=== PATIENT | female | born 1965 | race Caucasian/White ===

== ENCOUNTER 2023-10-08 14:21 | Outpatient (REF) | payer OTHER, SELFPAY | END 2023-10-08 14:22 | disposition home or self-care (01) | LOC: HO.LAB 14:21 | PROVIDERS: PCP Family Medicine; Visit Provider Psychiatry & Neurology Neurology | DX: Z13.89 Encounter for screening for other disorder (principal) ==

== ENCOUNTER 2023-10-23 08:41 | Outpatient (REF) | payer OTHER, SELFPAY ==
[2023-10-23 11:17] LABS: Alanine Aminotransferase 43 U/L (0-31); Albumin Level 4.5 g/dL (3.5-5.0); Alkaline Phosphatase 70 U/L (39-117); Anion Gap 12 (12-20); Aspartate Amino Transferase 27 U/L (5-31); Bilirubin Direct 0.1 mg/dL (0.0-0.5); Bilirubin Total 0.4 mg/dL (0.0-1.0); Blood Urea Nitrogen 16 mg/dL (9-16); Calcium 9.7 mg/dL (8.4-10.2); Carbon Dioxide 27 mmol/L (22-29); Chloride 110 mmol/L (96-108); Estimated Glomerular Filt Rate 58; Glucose Random 105 mg/dL (60-115); Potassium 4.4 mmol/L (3.3-5.1); Sodium 145 mmol/L (135-145); Total Protein 7.6 g/dL (6.5-8.0)
[2023-10-23 11:19] LABS: Syphilis Screen Nonreactive (Nonreactive)
[2023-10-28 14:28] LABS: Anti Nuclear Antibody Screen POSITIVE (NEGATIVE)
[2023-10-30 14:43] LABS: DNAds, Crithidia Antibody Negative (Negative)
== END 2023-10-23 08:42 | disposition home or self-care (01) ==
LOC: HO.LAB 08:41
PROVIDERS: Visit Provider Psychiatry & Neurology Neurology
DX: G93.40 Encephalopathy, unspecified (principal)
CPT/HCPCS: 36415; 80048; 80076; 86038; 86039; 86255; 86780

== ENCOUNTER 2023-10-30 09:21 | Outpatient (REF) | payer OTHER, SELFPAY ==
--- NOTE | ~2023-10-30 | MR_ITS ---
EXAMINATION: MR BRAIN WITHOUT AND WITH CONTRAST CLINICAL INFORMATION: Encephalopathy. COMPARISON: None available. TECHNIQUE: MRI of the brain was obtained using routine sequences without and following the administration of 8.5 mL of Gadavist intravenous contrast. FINDINGS: No focal restricted diffusion is demonstrated to suggest acute or subacute cerebral ischemia. No evidence of acute or chronic hemorrhagic products on heme-sensitive imaging. Few nonspecific scattered foci of periventricular and deep white matter T2 FLAIR hyperintensities. The ventricles are normal in morphology and size. No abnormal mass effect. No midline shift. Normal appearance of the pituitary gland. Normal positioning of the cerebellar tonsils. Normal arterial and venous vascular flow voids are present. No abnormal contrast enhancement. Normal, homogeneous marrow signal. Mild mucosal thickening of the paranasal sinuses. Moderate leftward nasal septal deviation. No signal abnormalities within the mastoids. MR/MR head/brain wo/w con IMPRESSION: 1. No acute intracranial abnormalities. No abnormal intracranial enhancement. 2. Mild nonspecific white matter changes.
[2023-10-30] MEDS: gadobutroL 10 ML VIAL IVPUSH (10:30)
== END 2023-10-30 09:22 | disposition home or self-care (01) ==
LOC: HO.MRI 09:21
PROVIDERS: Visit Provider Psychiatry & Neurology Neurology
DX: G93.40 Encephalopathy, unspecified (principal)
CPT/HCPCS: 70553; A9585

== ENCOUNTER 2025-01-25 12:04 | Outpatient (AMB) | payer OTHER, SELFPAY ==
--- NOTE | 2025-01-25 12:14 | MHC.OFFVIS ---
Intake Visit Reasons: 6 Months , Migranes Allergies amoxicillin Allergy (Unknown, Verified 01/20/25 09:38) Unknown erythromycin base Allergy (Unknown, Verified 01/20/25 09:38) Unknown HPI Comments Details: 59 yo RH woman with diagnoses of complex PTSD, major very treatment resistant depression (s/p trial of multiple meds, TMS, ECT, EMDS), bipolar disorder, and long Covid was was treated for migraine and REM sleep disorder. She is presenting with depression and insomnia. She reports a longstanding history of major depressive disorder that is resistant to pharmacological treatment. Despite attempts with numerous medications, she remains symptomatic, frequently expressing feelings of being unwanted and unloved, with relationships adding to emotional distress. Her resistance to treatments is further compounded by complex PTSD and related chronic insomnia. She notes significant sleep disturbances, suspecting only a few hours of sleep per night with frequent awakenings and inability to achieve deep REM sleep. The nightmares associated with PTSD have partially responded to prazosin. A history of non-responsive ECT and adverse reactions to TMS, including severe migraines, highlight the complexity of her treatment-resistant depression. Additionally, she struggles with generalized anxiety disorder, affecting her daily functioning and emotional stability. Past therapeutic attempts such as EMDR did not help improve her condition. [facility] Medical History (Updated 01/25/25 @ 12:16 by Qi Juares MD) Migraine without aura REM sleep behavior disorder Encephalopathy PTSD (post-traumatic stress disorder) Review of Systems Const Details: - General: Reports chronic fatigue and tiredness. - Psychiatric: Reports feeling extremely depressed, having persistent feelings of being unwanted and unloved, insomnia, nightmares, increased stress, and anxiety. - Neurologic: Reports migraines post-TMS. - Sleep: Reports chronic insomnia, averaging two hours of sleep per night, difficulty achieving deep sleep, and frequent awakenings. - Musculoskeletal: Denies any specific aches, but notes difficulty in mobilizing due to fatigue. Physical Exam Neuro Other: Mental Status: Alert and oriented to person, place, and time. Normal attention. Normal spontaneous speech, fluency, and comprehension. No obvious issues with mood and memory. Affect is appropriate. Cranial Nerves: CN II: Visual zaragoza full to confrontation, visual acuity intact. CN III, IV, : Pupils equal, round, reactive to light and accommodation. Extraocular movements are normal. CN V: Facial sensation is normal. CN VII: Facial movements symmetrical. CN VIII: Hearing intact to bedside conversation is normal. CN IX, X: Palate elevates symmetrically. CN XI: Shoulder shrug and head turn symmetrical. CN XII: Tongue midline without atrophy or fasciculations. Extrapyramidal: Full facial expressions and blinking. No rigidity. Movements are appropriate with no tremor or abnormality. Speech: Normal; no dysarthria or tremor. Assessment & Plan Assessment & Plan (1) REM sleep behavior disorder: Code(s): G47.52 - REM sleep behavior disorder Category: Medical (2) Migraine without aura: Comment: EEG at [facility] in October 2023: WNL MRI brain [place] at [facility] [place]: [place]. Code(s): G43.009 - Migraine without aura, not intractable, without status migrainosus Category: Medical Qualifiers: Status migrainosus presence: without status migrainosus Intractability: not intractable Qualified Code(s): G43.009 - Migraine without aura, not intractable, without status migrainosus (3) Migraine equivalent syndrome: Code(s): G43.109 - Migraine with aura, not intractable, without status migrainosus Category: Medical Plan Impression: a: Insomnia b: REM Sleep do c: Complex PTSD d: Major treatment resistent depression Rec: Try gabapentin 600mg at night She is already seeing a psychiatrist and a therapist Medications: New gabapentin 600 mg (2 x 300 mg) PO DAILY 180 caps 0RF Coding Level of Care Code Est Pt Level 4 (46870) Diagnoses REM sleep behavior disorder G47.52 Migraine without aura and without status migrainosus, not intractable G43.009 Status migrainosus presence: without status migrainosus Intractability: not intractable Migraine equivalent syndrome G43.109
== END 2025-01-25 12:29 | disposition home or self-care (01) ==
LOC: HO.HSM 12:04
PROVIDERS: PCP Internal Medicine; Visit Provider Psychiatry & Neurology Neurology
DX: G47.52 REM sleep behavior disorder (principal); G43.009 Migraine without aura, not intractable, without status migrainosus; G43.109 Migraine with aura, not intractable, without status migrainosus
CPT/HCPCS: 99214

== ENCOUNTER → 2025-01-25 12:04 | Outpatient (BNVA) | payer OTHER, SELFPAY | PROVIDERS: PCP Internal Medicine; Visit Provider Psychiatry & Neurology Neurology | DX: G47.52 REM sleep behavior disorder (principal); G43.109 Migraine with aura, not intractable, without status migrainosus | CPT/HCPCS: 99212 ==

== ENCOUNTER 2025-04-19 12:10 | Outpatient (AMB) | payer MEDICARE, MEDICAID, SELFPAY ==
--- NOTE | 2025-04-19 12:15 | MHC.OFFVIS ---
Intake Visit Reasons: 3M Allergies amoxicillin Allergy (Unknown, Verified 01/20/25 09:38) Unknown erythromycin base Allergy (Unknown, Verified 01/20/25 09:38) Unknown HPI Comments Details: 59 yo RH woman with diagnoses of complex PTSD, major very treatment resistant depression (s/p trial of multiple meds, TMS, ECT, EMDS), bipolar disorder, and long Covid was was treated for migraine and REM sleep disorder. She is presenting for management of chronic headaches. She reports experiencing terrible headaches every day. The pain moves and sometimes presents as a cluster headache or involves the entire frontal region with a band-like, squishing sensation. She also experiences intermittent shooting pains that she rates as 10/10 in severity. For acute treatment, she takes Tylenol 500 mg. Her current medications include duloxetine, gabapentin 50 mg, and meloxicam taken during the day. The patient reports that gabapentin has been working for sleep. She has previously tried Depakote but cannot recall the result, presuming it was not effective since she is no longer taking it. She is not keen on adding more medications to her regimen. [facility] Medical History (Updated 04/19/25 @ 12:21 by Qi Juares MD) Migraine without aura REM sleep behavior disorder Encephalopathy PTSD (post-traumatic stress disorder) Review of Systems Narrative - Neurological: Reports daily headaches, which she describes as moving pain, cluster headaches, a band-like squeezing sensation, and shooting pains with a severity of 10/10. - Reports poor memory. - Psychiatric: Reports that gabapentin helps with her sleep. Physical Exam Neuro Other: Mental Status: Alert and oriented to person, place, and time. Normal attention. Normal spontaneous speech, fluency, and comprehension. Cranial Nerves: CN II: Visual zaragoza full to confrontation, visual acuity intact. CN III, IV, : Pupils equal, round, reactive to light and accommodation. Extraocular movements are normal. CN V: Facial sensation is normal. CN VII: Facial movements symmetrical. CN VIII: Hearing intact to bedside conversation is normal. CN IX, X: Palate elevates symmetrically. CN XI: Shoulder shrug and head turn symmetrical. CN XII: Tongue midline without atrophy or fasciculations. Motor: Bulk and tone normal in all extremities. No significant muscle weakness in arms and legs. No drift. Reflexes: Deep tendon reflexes 2+ and symmetric. Plantar response down-going bilaterally. Coordination: [id number] and [id number] testing normal. No dysmetria. Gait and Station: No obvious gait abnormality. No ataxia or instability. Extrapyramidal: Full facial expressions and blinking. No rigidity. Movements are appropriate with no tremor or abnormality. Speech: Normal; no dysarthria or tremor. Assessment & Plan Assessment & Plan (1) Migraine without aura: Comment: EEG at [facility] in October 2023: [place] [facility] [place]. Code(s): G43.009 - Migraine without aura, not intractable, without status migrainosus Category: Medical Qualifiers: Status migrainosus presence: without status migrainosus Intractability: not intractable Qualified Code(s): G43.009 - Migraine without aura, not intractable, without status migrainosus (2) Migraine equivalent syndrome: Code(s): G43.109 - Migraine with aura, not intractable, without status migrainosus Category: Medical (3) REM sleep behavior disorder: Code(s): G47.52 - REM sleep behavior disorder Category: Medical Plan Impression: a: Chronic daily headaches, migrainous b: Insomnia c: REM Sleep do d: Complex PTSD e: Major treatment resistant depression Rec: Gabapentin 600mg at night for sleep do I discussed with the patient that her chronic daily headaches are not well-controlled with her current regimen. Given her reluctance to add more oral medications, I recommended that she see my nurse practitioner, Jacquelin, who can explore other treatment modalities for headaches. We acknowledged the patient's interest in craniosacral therapy, and I suggested she could discuss this further with the nurse practitioner. Coding Level of Care Code Est Pt Level 3 (82473) Diagnoses Migraine without aura and without status migrainosus, not intractable G43.009 Status migrainosus presence: without status migrainosus Intractability: not intractable Migraine equivalent syndrome G43.109 REM sleep behavior disorder G47.52
== END 2025-04-19 12:23 | disposition home or self-care (01) ==
LOC: HO.HSM 12:10
PROVIDERS: PCP Internal Medicine; Visit Provider Psychiatry & Neurology Neurology
DX: G43.009 Migraine without aura, not intractable, without status migrainosus (principal); G43.109 Migraine with aura, not intractable, without status migrainosus; G47.52 REM sleep behavior disorder
CPT/HCPCS: 99213

== ENCOUNTER → 2025-04-19 12:10 | Outpatient (BNVA) | payer OTHER, SELFPAY | PROVIDERS: PCP Internal Medicine; Visit Provider Psychiatry & Neurology Neurology | DX: G43.109 Migraine with aura, not intractable, without status migrainosus (principal); G47.52 REM sleep behavior disorder | CPT/HCPCS: 99212 ==